=== PATIENT | female | born 2000 | race Two or more races ===

== ENCOUNTER 2019-04-12 10:35 | Emergency (ER) | payer SELFPAY ==
[~2019-04-12] VITALS: Ht 170.2 cm; Wt 69.9 kg
[2019-04-12 10:49] VITALS: BP 118/71
--- NOTE | 2019-04-12 12:07 | NUR ---
Patient discharged to home in stable condition. Written and verbal after care instructions given. Patient verbalizes understanding of instruction.
== END 2019-04-12 12:08 | disposition home or self-care (01) ==
LOC: ER 10:40
DX: N61.0 Mastitis without abscess (principal)